=== PATIENT | female | born 1985 | race Two or more races ===

== ENCOUNTER 2020-01-16 09:46 | Day surgery (SDC) | payer OTHER ==
[2020-01-16] MEDS ORDERED: Tylenol #3 PO (09:51)
[2020-01-16] MEDS ORDERED: MORGIDOX100 MG PO (09:51)
== END 2020-01-16 18:20 | disposition home or self-care (01) ==
LOC: CIR.AMB 09:46
PROVIDERS: ATTEND Obstetrics & Gynecology
DX: O02.1 Missed abortion (principal)

== ENCOUNTER 2022-05-13 13:16 | Outpatient (CLI) | payer OTHER ==
[~2022-05-13 13:16] MED LIST: MORGIDOX100 MG PO; Tylenol #3 PO
== END 2022-05-13 14:35 | disposition home or self-care (01) ==
LOC: PRENATAL 13:16
PROVIDERS: ATTEND Obstetrics & Gynecology Maternal & Fetal Medicine
DX: O26.849 Uterine size-date discrepancy, unspecified trimester (principal); O36.8199 Decreased fetal movements, unspecified trimester, other fetus; O24.419 Gestational diabetes mellitus in pregnancy, unspecified control; Z3A.36 36 weeks gestation of pregnancy

== ENCOUNTER 2022-05-26 06:00 | Inpatient (IN) | payer OTHER ==
[~2022-05-26] VITALS: Ht 160 cm; Wt 93.0 kg
== END 2022-05-28 12:49 | disposition home or self-care (01) | DRG 807 ==
LOC: LDR 06:00 → OB/GYN 15:32
PROVIDERS: ADMIT Obstetrics & Gynecology; ATTEND Obstetrics & Gynecology
PROC: 10E0XZZ Delivery of Products of Conception, External Approach (ICD-10-PCS; principal; 2022-05-26)
PROC: 0KQM0ZZ Repair Perineum Muscle, Open Approach (ICD-10-PCS; 2022-05-26)
PROC: 4A1HXCZ Monitoring of Products of Conception, Cardiac Rate, External Approach (ICD-10-PCS; 2022-05-26)
DX: O70.1 Second degree perineal laceration during delivery (principal); Z37.0 Single live birth; Z3A.38 38 weeks gestation of pregnancy; Z20.822 Contact with and (suspected) exposure to COVID-19